=== PATIENT | male | born 1955 | race American Indian/Alaskan Native ===

== ENCOUNTER 2016-09-24 12:15 | Emergency (ER) | payer BC, OTHER ==
[2016-09-24 13:14] LABS: Basophils % (Auto) 0.6 % (0.0-1.8); Eosinophils % (Auto) 2.6 % (0.0-4.3); Hematocrit 44.9 % (35.5-45.6); Hemoglobin 14.9 gm/dl (11.8-15.2); Mean Corpuscular HGB Conc 33 % (32-34); Mean Corpuscular Hemoglobin 27 pg (28-32); Mean Corpuscular Volume 81 fl (84-94); Platelet Count 185 K/mm3 (140-440); Red Blood Count 5.56 M/mm3 (3.65-5.03); Red Cell Distribution Width 13.3 % (13.2-15.2); White Blood Count 6.4 K/mm3 (4.5-11.0)
[2016-09-24 13:22] LABS: Anion Gap 19 mmol/L; Blood Urea Nitrogen 20 mg/dL (9-20); Calcium 9.9 mg/dL (8.4-10.2); Carbon Dioxide 24 mmol/L (22-30); Chloride 98.7 mmol/L (98-107); Glucose 380 mg/dL (75-100); Potassium 4.4 mmol/L (3.6-5.0); Sodium 137 mmol/L (137-145)
[2016-09-25] MEDS ORDERED: NACL 0.9% 1000 ML 1,000 ML IV ONE (02:12)
[2016-09-25] MEDS ORDERED: ZESTRIL PO ONE (02:22)
--- NOTE | 2016-09-25 02:23 | Emergency Department Report ---
ED General Adult HPI - General Chief complaint: Hyperglycemia Stated complaint: HBS Time Seen by Provider: 09/25/16 02:12 Source: patient Mode of arrival: Ambulatory Limitations: No Limitations - History of Present Illness Initial comments: Pt is a 60 yr old male with a h/o DM and HTN who presents to the ED for hyperglycemia. Pt reports his FSG have been running high and he has been thirstier than usual and is urinating more than usual. Pt reports he takes levimir 25 units in the AM and metformin 1000mg PO BID. Pt has been taking his medications without fail. Pt has been in his normal state of health otherwise. Otherwise no fevers, chills, CHAMBERS, dizziness, vision changes, NVD, SOB, CP, abd pain, trauma, falls, dysuria, back paink, travel, or sick contacts. - Related Data Home Medications Medication Instructions Recorded Confirmed Last Taken Metformin HCl [Fortamet ER] 1,000 mg PO BID 07/23/15 07/24/15 07/23/15 yes Previous Rx's Medication Instructions Recorded Last Taken Type Insulin Glargine [Lantus VIAL] 23 units SUB-Q QHS #1 units 07/26/15 Unknown Rx Linagliptin [Tradjenta] 5 mg PO QDAY #30 tablet 07/26/15 Unknown Rx Lisinopril [Zestril TAB] 20 mg PO QDAY #30 tablet 07/26/15 Unknown Rx metFORMIN XR [Glucophage XR] 1,000 mg PO BIDDIAB #60 tablet 07/26/15 Unknown Rx Allergies Allergy/AdvReac Type Severity Reaction Status Date / Time No Known Allergies Allergy Verified 07/23/15 22:41 ED Review of Systems ROS: Stated complaint: HBS Other details as noted in HPI Comment: All other systems reviewed and negative ED Past Medical Hx - Past Medical History Previous Medical History?: Yes Hx Hypertension: Yes Hx Diabetes: Yes - Surgical History Past Surgical History?: No - Social History Smoking Status: Former Smoker Substance Use Type: Prescribed - Medications Home Medications: Home Medications Medication Instructions Recorded Confirmed Last Taken Type Metformin HCl [Fortamet ER] 1,000 mg PO BID 07/23/15 07/24/15 07/23/15 History yes Insulin Glargine [Lantus VIAL] 23 units SUB-Q QHS #1 units 07/26/15 Unknown Rx Linagliptin [Tradjenta] 5 mg PO QDAY #30 tablet 07/26/15 Unknown Rx Lisinopril [Zestril TAB] 20 mg PO QDAY #30 tablet 07/26/15 Unknown Rx metFORMIN XR [Glucophage XR] 1,000 mg PO BIDDIAB #60 tablet 07/26/15 Unknown Rx ED Physical Exam - General Limitations: No Limitations General appearance: alert, in no apparent distress - Head Head exam: Present: atraumatic, normocephalic - Eye Eye exam: Present: normal appearance - ENT ENT exam: Present: mucous membranes moist - Neck Neck exam: Present: normal inspection - Respiratory Respiratory exam: Present: normal lung sounds bilaterally. Absent: respiratory distress - Cardiovascular Cardiovascular Exam: Present: regular rate, normal rhythm. Absent: systolic murmur, diastolic murmur, rubs, gallop - GI/Abdominal GI/Abdominal exam: Present: soft, normal bowel sounds - Rectal Rectal exam: Present: deferred - Extremities Exam Extremities exam: Present: normal inspection - Back Exam Back exam: Present: normal inspection - Neurological Exam Neurological exam: Present: alert, oriented X3 - Psychiatric Psychiatric exam: Present: normal affect, normal mood - Skin Skin exam: Present: warm, dry, intact, normal color. Absent: rash ED Course Vital Signs 09/24/16 09/25/16 12:25 03:10 Temperature 97.4 F L Pulse Rate 93 H 72 Respiratory 20 Rate Blood Pressure 193/124 200/104 O2 Sat by Pulse 100 Oximetry - Reevaluation(s) Reevaluation #1: 09/25/16 02:22 Pt found to have BP 200/102, patient reports he takes lisinopril 20mg daily, will give one dose now Reevaluation #2: 09/25/16 04:28 Repeat BP: 173/93 ED Medical Decision Making - Lab Data Result diagrams: 09/24/16 12:42 09/24/16 12:42 - EKG Data -: EKG Interpreted by Me - EKG Data 09/25/16 02:23 Time 1232, normal sinus rhythm at 86 bpm, QTC 442 ms, left axis deviation, left anterior fascicular block, no ST changes, no STEMI Critical care attestation.: If time is entered above; I have spent that time in minutes in the direct care of this critically ill patient, excluding procedure time. ED Disposition Clinical Impression: Hyperglycemia, Hypertension Disposition: DISCHARGED TO HOME OR SELFCARE Is pt being admited?: No Condition: Stable Instructions: Hypertension (ED), Diabetic Hyperglycemia (ED) Referrals: [facility] [Outside] - 3-5 Days
[2016-09-25 05:02] LABS: Bilirubin,Urine NEG (Negative); Blood,Urine NEG (Negative); Ketones,Urine NEG (Negative); Leukocyte Esterase,Urine NEG (Negative); Mucus,Urine FEW /HPF; Nitrite,Urine NEG (Negative); Urobilinogen,Urine < 2.0 mg/dL (<2.0)
[2016-09-25 06:06] VITALS: BP 170/93
== END 2016-09-25 04:50 | disposition home or self-care (01) ==
LOC: ED 12:15
DX: E11.65 Type 2 diabetes mellitus with hyperglycemia (principal); I10 Essential (primary) hypertension; Z87.891 Personal history of nicotine dependence; Z79.4 Long term (current) use of insulin
CPT/HCPCS: 36415; 80048; 81001; 82805; 82962; 85025; 93005; 93010; 96360; 99284; J7030